=== PATIENT | male | born 1970 | race Caucasian/White ===

== ENCOUNTER 2019-05-11 08:38 | Emergency (ER) | payer OTHER ==
[~2019-05-11] VITALS: Ht 187.9 cm; Wt 120.2 kg
[~2019-05-11 08:38] MED LIST: FLONASE0.05 MG/AC NS; LISINOPRIL5 MG PO; PRAVASTATIN SOD20 MG PO
[2019-05-11] MEDS ORDERED: PREDNISONE20 M1 PO (09:29)
== END 2019-05-11 10:22 | disposition home or self-care (01) ==
LOC: ED 08:38
DX: L50.9 Urticaria, unspecified (principal); Z88.0 Allergy status to penicillin; Z88.6 Allergy status to analgesic agent

== ENCOUNTER 2020-06-15 11:42 | Emergency (ER) | payer OTHER ==
[~2020-06-15] VITALS: Wt 113.9 kg
[~2020-06-15 11:42] MED LIST changes: +PREDNISONE20 M1 PO
[2020-06-15 12:36] LABS: BASO # 0.1 10*3/uL (0.0-0.1); EOS # 0.1 10*3/uL (0.0-0.4); EOS % 1.8 % (1.0-4.0); HEMATOCRIT 43.2 % (42.0-52.0); LYMPH # 1.8 10*3/uL (1.3-4.4); LYMPH % 26.6 % (27.0-41.0); MEAN CELL VOLUME 93.1 fl (80.0-94.0); MEAN CORPUSCULAR HGB 30.6 pg (27.0-31.0); MEAN CORPUSCULAR HGB CONC 32.9 g/dl (33.0-37.0); MEAN PLATELET VOLUME 10.4 fl (9.6-12.3); MONO # 0.5 10*3/uL (0.1-1.0); MONO % 7.7 % (3.0-9.0); NEUT # 4.2 10*3/uL (2.3-7.9); NEUT % 62.6 % (47.0-73.0); PLATELET COUNT AUTOMATED 185 10*3/uL (130-400); RED BLOOD COUNT 4.64 10*6/uL (4.50-5.90); RED CELL DISTRI WIDTH 13.2 % (0-14.5); WHITE BLOOD COUNT 6.7 10*3/uL (4.8-10.8)
[2020-06-15 12:49] LABS: BILIRUBIN Negative (Negative); BLOOD Negative (Negative); CLARITY Clear (Clear); COLOR Yellow (Yellow); GLUCOSE Negative (Negative); KETONE Negative (Negative); LEUKO ESTERASE Negative (Negative); NITRITE Negative (Negative); PH 6.5 (4.5-8.0); SPECIFIC GRAVITY <= 1.005 (1.001-1.030); UROBILINOGEN 0.2 E.U./dl (0.0-1.0)
[2020-06-15 12:50] LABS: ALBUMIN 3.9 gm/dl (3.1-4.5); ALKALINE PHOSPHATASE 67 U/L (45-117); BUN 13 mg/dl (7-24); CHLORIDE 106 mmol/L (98-107); CREATININE 0.91 mg/dL (0.70-1.30); LIPASE 121 U/L (73-393); POTASSIUM 4.5 mmol/L (3.5-5.1); SGOT/AST 23 IU/L (3-35); SGPT/ALT 48 U/L (12-78); SODIUM 140 mmol/L (136-145); TOTAL PROTEIN 7.9 gm/dL (6.4-8.2)
[2020-06-15 13:00] LABS: EPITHELIAL CELLS 0-2
[2020-06-15] MEDS ORDERED: ROBAXIN-750750 MG PO (14:06)
== END 2020-06-15 14:30 | disposition home or self-care (01) ==
LOC: ED 11:42
PROVIDERS: Nurse Practitioner Family
DX: R07.81 Pleurodynia (principal); Z79.899 Other long term (current) drug therapy; Z88.0 Allergy status to penicillin; Z88.6 Allergy status to analgesic agent

== ENCOUNTER → 2020-08-03 | Outpatient (CLI) | payer OTHER ==
[~2020-08-03] MED LIST changes: +ROBAXIN-750750 MG PO
== END | disposition home or self-care (01) ==
LOC: COVID19 08:13
PROVIDERS: ATTEND Internal Medicine Gastroenterology
DX: Z01.812 Encounter for preprocedural laboratory examination (principal); Z20.822 Contact with and (suspected) exposure to COVID-19

== ENCOUNTER 2021-03-25 12:49 | Emergency (ER) | payer OTHER ==
[~2021-03-25] VITALS: Ht 187.9 cm; Wt 115.7 kg
[2021-03-25] MEDS ORDERED: BUPROPION HYDR150 M3 PO (12:58)
[2021-03-25 13:45] LABS: BASO % 0.4 % (0.0-1.0); HEMATOCRIT 43.1 % (42.0-52.0); LYMPH # 0.7 10*3/uL (1.3-4.4); LYMPH % 13.3 % (27.0-41.0); MEAN CELL VOLUME 89.8 fl (80.0-94.0); MEAN CORPUSCULAR HGB 30.4 pg (27.0-31.0); MEAN CORPUSCULAR HGB CONC 33.9 g/dl (33.0-37.0); MEAN PLATELET VOLUME 10.2 fl (9.6-12.3); MONO # 0.4 10*3/uL (0.1-1.0); MONO % 6.9 % (3.0-9.0); NEUT # 4.1 10*3/uL (2.3-7.9); PLATELET COUNT AUTOMATED 106 10*3/uL (130-400); RED CELL DISTRI WIDTH 13.3 % (0-14.5); WHITE BLOOD COUNT 5.2 10*3/uL (4.8-10.8)
[2021-03-25 14:04] LABS: ALBUMIN 3.4 gm/dl (3.1-4.5); ALKALINE PHOSPHATASE 65 U/L (45-117); BUN 19 mg/dl (7-24); CHLORIDE 100 mmol/L (98-107); CREATININE 0.77 mg/dL (0.70-1.30); POTASSIUM 3.8 mmol/L (3.5-5.1); SGOT/AST 53 IU/L (3-35); SGPT/ALT 86 U/L (12-78); SODIUM 132 mmol/L (136-145); TOTAL PROTEIN 7.5 gm/dL (6.4-8.2)
== END 2021-03-25 15:49 | disposition home or self-care (01) ==
LOC: ED 12:49
PROVIDERS: Family Medicine
DX: U07.1 COVID-19 (principal); Z88.0 Allergy status to penicillin; Z88.6 Allergy status to analgesic agent

== ENCOUNTER → 2023-12-16 | Outpatient (CLI) | payer OTHER ==
[~2023-12-16] MED LIST changes: +BUPROPION HYDR150 M3 PO
== END | disposition home or self-care (01) ==
LOC: RAD 16:31
PROVIDERS: ATTEND Chiropractor
DX: M79.642 Pain in left hand (principal); M25.532 Pain in left wrist

== ENCOUNTER 2024-10-16 21:26 | Emergency (ER) | payer OTHER ==
[~2024-10-16] VITALS: Ht 188 cm; Wt 117.9 kg
[2024-10-16] MEDS ORDERED: SODIUM CHLORIDE 0.9% 1,000 ML IV ONE (22:35)
[2024-10-16] MEDS ORDERED: HYDROmorphONE Hydrochloride 0.5 MG/0.5 ML SYRINGE IV ONE (22:35)
[2024-10-16 22:48] LABS: BASO # 0.1 10*3/uL (0.0-0.1); BASO % 0.8 % (0.0-1.0); EOS # 0.4 10*3/uL (0.0-0.4); HEMATOCRIT 42.4 % (42.0-52.0); MEAN CELL VOLUME 94.4 fl (80.0-94.0); MEAN CORPUSCULAR HGB 30.5 pg (27.0-31.0); MEAN CORPUSCULAR HGB CONC 32.3 g/dl (33.0-37.0); MEAN PLATELET VOLUME 10.3 fl (9.6-12.3); MONO # 0.7 10*3/uL (0.1-1.0); MONO % 6.3 % (3.0-9.0); NEUT % 75.8 % (47.0-73.0); PLATELET COUNT AUTOMATED 186 10*3/uL (130-400); RED BLOOD COUNT 4.49 10*6/uL (4.50-5.90); RED CELL DISTRI WIDTH 13.1 % (0-14.5); WHITE BLOOD COUNT 11.8 10*3/uL (4.8-10.8)
[2024-10-16] MEDS ORDERED: Ondansetron Hydrochloride 4 MG/2 ML VIAL IV ONE (22:55)
[2024-10-16 23:12] LABS: ALKALINE PHOSPHATASE 53 U/L (46-116); BUN 21 mg/dl (9-23); CHLORIDE 103 mmol/L (98-107); LIPASE 45 U/L (12-53); POTASSIUM 4.2 mmol/L (3.4-5.1); SGPT/ALT 40 U/L (5-49); TOTAL PROTEIN 7.1 gm/dL (6.0-8.0)
[2024-10-17] MEDS ORDERED: Ondansetron 4 MG 2 TAB ED PACK PO SCH (00:10)
[2024-10-17] MEDS ORDERED: Tamsulosin Hydrochloride 0.4 MG CAP PO ONE (00:10)
[2024-10-17] MEDS ORDERED: Acetaminophen/Hydrocodone 5 MG/325 MG TABLET PO ONE (00:10)
[2024-10-17] MEDS ORDERED: Ondansetron4 MG PO (00:14)
[2024-10-17] MEDS ORDERED: FLOMAX0.4 MG PO (00:14)
[2024-10-17] MEDS ORDERED: HYDROCODONE-AC1 EAC1 PO (00:14)
[2024-10-17 00:19] LABS: BILIRUBIN Negative (Negative); BLOOD Negative (Negative); CLARITY Clear (Clear); COLOR Yellow (Yellow); GLUCOSE Negative (Negative); KETONE Negative (Negative); LEUKO ESTERASE Negative (Negative); NITRITE Negative (Negative); UROBILINOGEN 0.2 E.U./dl (0.0-1.0)
[2024-10-17 00:40] LABS: WBC 0-2 wbc/hpf (0-5)
== END 2024-10-17 00:53 | disposition home or self-care (01) ==
LOC: ED 21:26
PROVIDERS: Nurse Practitioner
DX: N13.2 Hydronephrosis with renal and ureteral calculous obstruction (principal); R11.2 Nausea with vomiting, unspecified; E11.9 Type 2 diabetes mellitus without complications; I10 Essential (primary) hypertension; F32.A Depression, unspecified; Z88.0 Allergy status to penicillin; Z88.6 Allergy status to analgesic agent; Z79.899 Other long term (current) drug therapy

== ENCOUNTER → 2024-12-15 | Outpatient (CLI) | payer OTHER ==
[~2024-12-15] MED LIST changes: +FLOMAX0.4 MG PO; +HYDROCODONE-AC1 EAC1 PO; +IOHEXOL 300 MG/ML 100 ML VIAL IV ONE; +Ondansetron4 MG PO
== END | disposition home or self-care (01) ==
LOC: CT 11-17 08:00 → LAB 01:09 → CT 08:00
PROVIDERS: ATTEND Internal Medicine
DX: K76.0 Fatty (change of) liver, not elsewhere classified (principal); N20.0 Calculus of kidney; N13.9 Obstructive and reflux uropathy, unspecified; K80.20 Calculus of gallbladder without cholecystitis without obstruction; K57.30 Diverticulosis of large intestine without perforation or abscess without bleeding

== ENCOUNTER 2025-02-16 14:08 | Emergency (ER) | payer OTHER ==
[~2025-02-16] VITALS: Ht 187.9 cm; Wt 122.5 kg
[~2025-02-16 14:08] MED LIST changes: -IOHEXOL 300 MG/ML 100 ML VIAL IV ONE
[2025-02-16] MEDS ORDERED: TAMSULOSIN HCL0.4 MG PO (15:02)
[2025-02-16] MEDS ORDERED: OZEMPIC0.25 MG/03 SQ (15:02)
[2025-02-16] MEDS ORDERED: LISINOPRIL20 MG PO (15:03)
[2025-02-16] MEDS ORDERED: GLIMEPIRIDE4 M1 PO (15:03)
[2025-02-16] MEDS ORDERED: AMLODIPINE BESYL5 MG PO (15:03)
[2025-02-16] MEDS ORDERED: METFORMIN850 MG PO (15:03)
== END 2025-02-16 16:27 | disposition home or self-care (01) ==
LOC: ED 14:08
DX: S80.02XA Contusion of left knee, initial encounter (principal); I10 Essential (primary) hypertension; E11.9 Type 2 diabetes mellitus without complications; F32.A Depression, unspecified; Z88.0 Allergy status to penicillin; Z88.1 Allergy status to other antibiotic agents; V89.2XXA Person injured in unspecified motor-vehicle accident, traffic, initial encounter; Y93.89 Activity, other specified; Y92.410 Unspecified street and highway as the place of occurrence of the external cause; Y99.8 Other external cause status